=== PATIENT | female | born 1945 | race Caucasian/White ===

== ENCOUNTER 2017-10-18 10:15 | Emergency (ER) | payer MEDICARE, OTHER | END 2017-10-18 11:17 | disposition home or self-care (01) | LOC: E/R 10:15 | DX: B02.9 Zoster without complications (principal); E11.9 Type 2 diabetes mellitus without complications; Z79.84 Long term (current) use of oral hypoglycemic drugs; Z79.82 Long term (current) use of aspirin | CPT/HCPCS: 99284 ==